=== PATIENT | male | born 1980 | race Two or more races ===

== ENCOUNTER 2023-07-09 19:45 | Emergency (ER) | payer OTHER ==
[~2023-07-09] VITALS: Ht 180.3 cm; Wt 84.4 kg
== END 2023-07-10 04:24 | disposition home or self-care (01) ==
LOC: ER 19:46
DX: S51.802A Unspecified open wound of left forearm, initial encounter (principal); W45.8XXA Other foreign body or object entering through skin, initial encounter; Y93.89 Activity, other specified; Y92.89 Other specified places as the place of occurrence of the external cause; Y99.8 Other external cause status

== ENCOUNTER 2023-07-19 18:59 | Emergency (ER) | payer BC ==
[~2023-07-19] VITALS: Ht 180.3 cm; Wt 81.6 kg
== END 2023-07-19 21:02 | disposition home or self-care (01) ==
LOC: ER 19:00
DX: Z48.02 Encounter for removal of sutures (principal)